=== PATIENT | male | born 1990 | race Caucasian/White ===

== ENCOUNTER 2024-01-06 23:07 | Emergency (ER) | payer MEDICAID ==
[~2024-01-06] VITALS: Ht 175.3 cm; Wt 100.0 kg
[2024-01-06 23:23] VITALS: BP 105/64; PULSE 100; RESP 16; TEMP 98.1; O2SAT 99
[2024-01-07] MEDS: KETOROLAC 15MG/ML VIAL IM ONE (00:36)
[2024-01-07] MEDS ORDERED: NAPR-1176 MT (01:40)
== END 2024-01-07 02:05 | disposition home or self-care (01) ==
LOC: ER 23:07
DX: S06.0XAA Concussion with loss of consciousness status unknown, initial encounter (principal); Z79.1 Long term (current) use of non-steroidal anti-inflammatories (NSAID); Y08.89XA Assault by other specified means, initial encounter; Y93.89 Activity, other specified; Y92.89 Other specified places as the place of occurrence of the external cause; Y99.8 Other external cause status
CPT/HCPCS: 99285; 70486; 96372; J1885